=== PATIENT | female | born 2000 | race Caucasian/White ===

== ENCOUNTER 2021-07-16 14:57 | Emergency (ER) | payer OTHER ==
[2021-07-16 15:06] VITALS: BP 120/79; PULSE 88; TEMP 97.9; BMI 29.2
[2021-07-16 16:30] LABS: BASO % 0.4 % (0-2.0); EOS % 1.9 % (0-4.5); HEMATOCRIT 34.7 % (32.4-45.2); HEMOGLOBIN 11.6 GM/dL (10.7-15.3); LYMPH % 23.7 % (8-40); MCH 26.2 pg (25.7-33.7); MCHC 33.6 g/dl (32.0-36.0); MEAN PLT VOLUME 7.5 fl (7.5-11.1); MONO % 5.9 % (3.8-10.2); NEUT % 68.1 % (42.8-82.8); PLATELET COUNT 226 10^3/uL (134-434); RBC 4.44 M/mm3 (3.60-5.2); RDW 14.1 % (11.6-15.6)
[2021-07-16 16:38] LABS: INR 1.26 (0.83-1.09); PROTHROMBIN TIME (PATIENT) 14.2 SEC (9.7-13.0)
[2021-07-16 16:41] LABS: ACTIVATED PTT 28.7 SECONDS (25.2-36.5)
[2021-07-16 16:50] LABS: CALCIUM 8.4 mg/dL (8.5-10.1)
[2021-07-16 16:51] LABS: ALBUMIN 3.3 g/dl (3.4-5.0); BLOOD UREA NITROGEN 5.7 mg/dL (7-18)
[2021-07-16 16:54] LABS: CREATININE 0.7 mg/dL (0.55-1.3)
[2021-07-16 16:55] LABS: BILIRUBIN,TOTAL 0.2 mg/dL (0.2-1); TOT PROT 6.7 g/dl (6.4-8.2)
[2021-07-16 17:55] LABS: HCG,QUALITATIVE URINE Positive
[2021-07-16 17:57] LABS: EPI CELLS 27 /uL (0-25.1); HYALINE CASTS 1 /uL (0-3.1); PH,URINE 6.5 (5.0-8.0); URINE APPEARANCE CLEAR; URINE BACTERIA 113 /uL (0-1359); URINE BILIRUBIN NEGATIVE (NEGATIVE); URINE COLOR YELLOW; URINE GLUCOSE (UA) NEGATIVE (NEGATIVE); URINE KETONE NEGATIVE (NEGATIVE); URINE LEUK ESTERASE 3+ (NEGATIVE); URINE NITRITE NEGATIVE (NEGATIVE); URINE PROTEIN NEGATIVE (NEGATIVE); URINE RBC 4 /uL (0-23.9); URINE UROBILINOGEN 0.2 mg/dL (0.2-1.0); URINE WBC 22 /uL (0-25.8)
[2021-07-16 18:51] LABS: YEAST FEW (NEGATIVE)
== END 2021-07-16 18:10 | disposition home or self-care (01) ==
LOC: JER 14:57
DX: O26.851 Spotting complicating pregnancy, first trimester (principal); Z3A.11 11 weeks gestation of pregnancy
CPT/HCPCS: 36415; 76810-TC; 80053; 81003; 84702; 84703; 85025; 85610; 85730; 86850; 86900; 86901; 87086; 99284-25